=== PATIENT | female | born 1975 | race Two or more races ===

== ENCOUNTER → 2018-05-29 | Outpatient (CLI) | payer OTHER | END | disposition home or self-care (01) | LOC: CFH 14:19 | PROVIDERS: ATTEND Obstetrics & Gynecology Maternal & Fetal Medicine | DX: N60.02 Solitary cyst of left breast (principal); N63.21 Unspecified lump in the left breast, upper outer quadrant | CPT/HCPCS: 76641; 77066; G0279 ==

== ENCOUNTER → 2020-06-10 | Outpatient (CLI) | payer OTHER | END | disposition home or self-care (01) | LOC: CFH 14:52 | PROVIDERS: ATTEND Obstetrics & Gynecology Maternal & Fetal Medicine | DX: Z12.31 Encounter for screening mammogram for malignant neoplasm of breast (principal) | CPT/HCPCS: 77067 ==